=== PATIENT | female | born 1955 | race African-American/Black ===

== ENCOUNTER 2016-12-15 18:57 | Inpatient (IN) | payer OTHER ==
[~2016-12-15] VITALS: Ht 170.2 cm; Wt 131.5 kg
[2016-12-15 19:58] LABS: BASOPHIL % 0 % (0-2); PLATELET COUNT 243 x10^3mcL (130-400); RED CELL DISTRIBUTION WIDTH 15.1 % (11.5-14.5)
[2016-12-15 20:34] LABS: CARBON DIOXIDE 29.4 mmol/L (21-32); CHLORIDE SERUM 106 mmol/L (98-107); CREATININE SERUM 0.9 mg/dL (0.6-1.0); GFR1 > 60 mL/min; GLUCOSE SERUM 137 mg/dL (74-106); POTASSIUM SERUM 3.7 mmol/L (3.5-5.1); SODIUM SERUM 141 mmol/L (136-145)
[2016-12-15 20:39] LABS: ALKALINE PHOSPHATASE 63 U/L (46-116); ALT/SGPT 36 U/L (14-59); AST/SGOT 29 U/L (15-37); BILIRUBIN TOTAL 0.37 mg/dL (0.20-1.00); LIPASE 115 IU/L (73-393); MAGNESIUM 1.7 mg/dL (1.8-2.4); TOTAL PROTEIN, SERUM 7.8 g/dL (6.4-8.2)
[2016-12-15 20:40] LABS: ALBUMIN 3.2 g/dL (3.4-5.0)
[2016-12-15] MEDS ORDERED: PAXIL10 MG PO (21:26)
[2016-12-15] MEDS ORDERED: TRAZODONE50 M1 PO (21:26)
[2016-12-15] MEDS ORDERED: WELSR PO (21:27)
[2016-12-15] MEDS ORDERED: HYDROCHLOROTH12.5 M2 PO (21:27)
[2016-12-15 23:16] VITALS: BP 156/93
[2016-12-16 00:59] LABS: FREE T4 1.02 ng/dL (0.76-1.46); FREE THYROXINE INDEX 2.5 ug/dL (1.4-4.5); T4(THYROXINE) 9.4 ug/dL (4.7-13.3)
[2016-12-16 01:01] LABS: T3 TOTAL 1.15 ng/mL
[2016-12-16 01:17] LABS: CHOLESTEROL/HDL RATIO 4.3
[2016-12-16 06:09] LABS: PLATELET COUNT 213 x10^3mcL (130-400)
[2016-12-16 06:30] VITALS: BP 115/50
[2016-12-16 06:41] LABS: CALCIUM 8.4 mg/dL (8.5-10.1); CARBON DIOXIDE 26.8 mmol/L (21-32); CHLORIDE SERUM 108 mmol/L (98-107); CREATININE SERUM 0.8 mg/dL (0.6-1.0); GFR1 > 60 mL/min; GLUCOSE SERUM 119 mg/dL (74-106); MAGNESIUM 2.3 mg/dL (1.8-2.4); PHOSPHOROUS 3.9 mg/dL (2.5-4.9); POTASSIUM SERUM 3.5 mmol/L (3.5-5.1); SODIUM SERUM 142 mmol/L (136-145)
[2016-12-16 06:55] LABS: BASOPHIL % 0 % (0-2); RED CELL DISTRIBUTION WIDTH 14.8 % (11.5-14.5)
[2016-12-16 09:55] LABS: UA SPECIFIC GRAVITY >=1.030 (1.005-1.035); microscopic required? YES; urine erythrocyte 2+ (NEGATIVE)
[2016-12-16 09:56] LABS: AMPHETAMINE QUAL UR NONE DETECTED (NEG <=1000)
[2016-12-16 10:57] VITALS: BP 113/51
[2016-12-16 22:05] VITALS: BP 147/71
[2016-12-17 06:11] LABS: PLATELET COUNT 214 x10^3mcL (130-400)
[2016-12-17 06:39] LABS: RED CELL DISTRIBUTION WIDTH 15.2 % (11.5-14.5)
[2016-12-17 06:54] VITALS: BP 133/68
[2016-12-17 06:56] LABS: CALCIUM 8.1 mg/dL (8.5-10.1); CARBON DIOXIDE 27.5 mmol/L (21-32); MAGNESIUM 1.9 mg/dL (1.8-2.4); PHOSPHOROUS 2.6 mg/dL (2.5-4.9); POTASSIUM SERUM 3.6 mmol/L (3.5-5.1)
[2016-12-17 07:05] VITALS: BP 133/68
[2016-12-17 10:00] VITALS: BP 156/75
[2016-12-17 10:18] LABS: MONOCYTE 8 % (0-7); SEGMENTED NEUTROPHILS 80 % (37-75)
[2016-12-17 10:19] LABS: BAND NEUTROPHIL 6 % (0-10); BASOPHIL 0 % (0-2); PLATELET MORPHOLOGY PLATELETS NORMAL
[2016-12-17 17:08] VITALS: BP 130/67
[2016-12-17 20:46] VITALS: BP 141/76
[2016-12-17 22:31] VITALS: BP 141/80
[2016-12-17 23:48] LABS: PLATELET COUNT 257 x10^3mcL (130-400)
[2016-12-17 23:53] LABS: RED CELL DISTRIBUTION WIDTH 15.3 % (11.5-14.5)
[2016-12-18 02:59] LABS: BAND NEUTROPHIL 6 % (0-10); METAMYELOCTE 5 % (0-2); MONOCYTE 2 % (0-7); MYELOCYTE 1 % (0-2); SEGMENTED NEUTROPHILS 82 % (37-75)
[2016-12-18 03:01] LABS: PLATELET MORPHOLOGY LARGE PLATELET SEEN; rbc morphology (normal/abnorm) NORMAL (NORMAL)
[2016-12-18 06:08] LABS: PLATELET COUNT 246 x10^3mcL (130-400)
[2016-12-18 06:21] VITALS: BP 154/83
[2016-12-18 06:42] LABS: CALCIUM 8.7 mg/dL (8.5-10.1); CARBON DIOXIDE 29.5 mmol/L (21-32); CHLORIDE SERUM 105 mmol/L (98-107); CREATININE SERUM 0.9 mg/dL (0.6-1.0); GFR1 > 60 mL/min; GLUCOSE SERUM 140 mg/dL (74-106); MAGNESIUM 2.2 mg/dL (1.8-2.4); PHOSPHOROUS 2.7 mg/dL (2.5-4.9); POTASSIUM SERUM 3.1 mmol/L (3.5-5.1); SODIUM SERUM 143 mmol/L (136-145)
[2016-12-18 07:45] LABS: RED CELL DISTRIBUTION WIDTH 14.9 % (11.5-14.5)
[2016-12-18 08:34] LABS: BAND NEUTROPHIL 7 % (0-10); BASOPHIL 0 % (0-2); METAMYELOCTE 5 % (0-2); MONOCYTE 5 % (0-7); MYELOCYTE 1 % (0-2); SEGMENTED NEUTROPHILS 77 % (37-75)
[2016-12-18 08:42] LABS: rbc morphology (normal/abnorm) ABNORMAL (NORMAL)
[2016-12-18 18:13] VITALS: BP 117/68
[2016-12-18 21:35] VITALS: BP 115/64
[2016-12-19 05:46] VITALS: BP 118/82
[2016-12-19 06:28] LABS: PLATELET COUNT 257 x10^3mcL (130-400)
[2016-12-19 07:28] LABS: CALCIUM 8.7 mg/dL (8.5-10.1); CARBON DIOXIDE 27.3 mmol/L (21-32); CHLORIDE SERUM 107 mmol/L (98-107); CREATININE SERUM 0.8 mg/dL (0.6-1.0); GFR1 > 60 mL/min; GLUCOSE SERUM 106 mg/dL (74-106); MAGNESIUM 2.1 mg/dL (1.8-2.4); PHOSPHOROUS 3.1 mg/dL (2.5-4.9); POTASSIUM SERUM 3.3 mmol/L (3.5-5.1); SODIUM SERUM 144 mmol/L (136-145)
[2016-12-19 10:26] LABS: BAND NEUTROPHIL 3 % (0-10); BASOPHIL 0 % (0-2); MONOCYTE 5 % (0-7); SEGMENTED NEUTROPHILS 81 % (37-75)
[2016-12-19 10:27] LABS: PLATELET MORPHOLOGY PLATELETS NORMAL; rbc morphology (normal/abnorm) ABNORMAL (NORMAL)
[2016-12-19 10:29] VITALS: BP 135/100
[2016-12-19 16:45] VITALS: BP 135/100
[2016-12-19 21:29] VITALS: BP 143/79
== END 2016-12-20 00:13 | disposition short-term general hospital (02) | DRG 393 ==
LOC: ED 18:57 → DU 22:24 → MU 22:24 → DU 22:55 → MU 12-16 06:55
PROVIDERS: Emergency Medicine; Family Medicine; ADMIT Family Medicine
DX: K35.80 Unspecified acute appendicitis (principal); N17.0 Acute kidney failure with tubular necrosis; K57.92 Diverticulitis of intestine, part unspecified, without perforation or abscess without bleeding; E44.0 Moderate protein-calorie malnutrition; N39.0 Urinary tract infection, site not specified; Z68.42 Body mass index [BMI] 45.0-49.9, adult; I10 Essential (primary) hypertension; E83.42 Hypomagnesemia; F43.10 Post-traumatic stress disorder, unspecified; F32.9 Major depressive disorder, single episode, unspecified; R80.8 Other proteinuria; E66.01 Morbid (severe) obesity due to excess calories; E78.5 Hyperlipidemia, unspecified; I27.2 Other secondary pulmonary hypertension; E11.65 Type 2 diabetes mellitus with hyperglycemia; E87.8 Other disorders of electrolyte and fluid balance, not elsewhere classified; Z90.49 Acquired absence of other specified parts of digestive tract; Z53.29 Procedure and treatment not carried out because of patient's decision for other reasons; Z79.4 Long term (current) use of insulin
CPT/HCPCS: 80307; 82962; 83880; 84439; 94150; J1940; J1956; J2270; J2405; J3475; J3480; J3490; J7030; J7620; Q0092; Q9966

== ENCOUNTER 2019-05-17 18:14 | Emergency (ER) | payer OTHER ==
[~2019-05-17] VITALS: Ht 167.6 cm; Wt 117.9 kg
[~2019-05-17 18:14] MED LIST: HYDROCHLOROTH12.5 M2 PO; PAXIL10 MG PO; TRAZODONE50 M1 PO; WELSR PO
[2019-05-17 21:28] VITALS: BP 130/55
== END 2019-05-17 21:28 | disposition home or self-care (01) ==
LOC: ED 18:14
DX: S39.92XA Unspecified injury of lower back, initial encounter (principal); S49.91XA Unspecified injury of right shoulder and upper arm, initial encounter; S09.90XA Unspecified injury of head, initial encounter; W01.0XXA Fall on same level from slipping, tripping and stumbling without subsequent striking against object, initial encounter; Y93.89 Activity, other specified; Y92.89 Other specified places as the place of occurrence of the external cause; Y99.8 Other external cause status
CPT/HCPCS: J1885